=== PATIENT | male | born 1965 | race Caucasian/White ===

== ENCOUNTER 2016-12-03 15:48 | Emergency (ER) | payer SELFPAY ==
[2016-12-03 16:57] LABS: BASOPHILS 0.3 % (0-2); EOSINOPHILS 0.8 % (0-7); HEMATOCRIT 45.7 % (42.0-54.0); HEMOGLOBIN 16.8 g/dL (13.5-17.5); IMMATURE GRANULOCYTES 0.3 % (0-5); LYMPHOCYTES 47.9 % (15-50); MCH 41.4 pg (26.0-34.0); MCHC 36.8 g/dL (31.0-37.0); MCV 112.6 fL (80.0-100.0); MEAN PLATELET VOLUME 9.2 fL (7.4-10.4); MONOCYTES 10.5 % (2-11); NEUTROPHILS 40.2 % (40-80); PLATELET COUNT 94 10x3/uL (130-400); RBC 4.06 10x6/uL (4.20-6.10); RDW 12.9 % (11.5-14.5); WBC 3.6 10x3/uL (4.8-10.8)
[2016-12-03 17:02] LABS: ALBUMIN 3.5 g/dL (3.4-5.0); ALKALINE PHOSPHATASE 64 U/L (46-116); ALT (SGPT) 102 U/L (10-68); BILIRUBIN - TOTAL 1.65 mg/dL (0.2-1.3); CALC OSMOLALITY 276 mosm/kg (275-300); CALCIUM 8.3 mg/dL (8.5-10.1); CARBON DIOXIDE 27.8 mmol/L (21.0-32.0); CHLORIDE - SERUM 101 mmol/L (98-107); CREATININE - SERUM 0.8 mg/dL (0.6-1.3); GLUCOSE 106 mg/dL (74-106); MAGNESIUM - SERUM 1.5 mg/dL (1.8-2.4); POTASSIUM - SERUM 3.1 mmol/L (3.5-5.1); PROTEIN - SERUM 7.2 g/dL (6.4-8.2); SODIUM 140 mmol/L (136-145); UREA NITROGEN 6 mg/dL (7-18); eGFR NON AFRICAN AMERICAN > 90 mL/min (90-120)
[2016-12-03 17:34] LABS: PLATELET ESTIMATE DECREASED
== END 2016-12-03 22:10 | disposition home or self-care (01) ==
LOC: D.ER 15:48
PROVIDERS: Emergency Medicine
DX: F10.129 Alcohol abuse with intoxication, unspecified (principal); E87.6 Hypokalemia; F41.9 Anxiety disorder, unspecified; R45.1 Restlessness and agitation